=== PATIENT | male | born 1955 | race Caucasian/White ===

== ENCOUNTER 2017-04-05 09:05 | Outpatient (CLI) | payer MEDICAID ==
[2017-04-05 18:49] LABS: ALBUMIN/GLOBULIN RATIO 1.6 (1.0-2.2); BILIRUBIN,TOTAL 0.6 mg/dL (0.2-1.0); BUN - BLOOD UREA NITROGEN 18 mg/dL (6-20); CALCIUM 8.9 mg/dL (8.5-10.3); CARBON DIOXIDE - CO2 29 mmol/L (21-32); CHLORIDE 101 mmol/L (101-111); CHOL/HDL RATIO 3.4 (<5.0); CHOLESTEROL 199 mg/dL; CREATININE 0.9 mg/dL (0.6-1.2); GFR - MDRD 86 (>89); GLUCOSE 99 mg/dL (70-100); HDL CHOLESTEROL 59 mg/dL; LDL/HDL RATIO 1.9 (<3.6); POTASSIUM 4.1 mmol/L (3.5-5.0); SODIUM 134 mmol/L (135-145); TOTAL PROTEIN 6.5 g/dL (6.7-8.2); TRIGLYCERIDES 138 mg/dL; VLDL CHOLESTEROL 28 mg/dL
== END 2017-04-05 09:06 | disposition home or self-care (01) ==
LOC: LAB.F 09:05
PROVIDERS: ATTEND Nurse Practitioner Family
DX: Z13.1 Encounter for screening for diabetes mellitus (principal); Z13.220 Encounter for screening for lipoid disorders; Z12.5 Encounter for screening for malignant neoplasm of prostate
CPT/HCPCS: 36415; 80053; 80061; 84153

== ENCOUNTER 2017-04-12 15:33 | Outpatient (CLI) | payer MEDICAID ==
--- NOTE | 2017-04-13 13:13 | XRAY Report ---
EXAM: RIGHT FOOT RADIOGRAPHY EXAM DATE: 04/12/2017 03:45 PM. CLINICAL HISTORY: PAIN IN RIGHT FOOT. COMPARISON: None. TECHNIQUE: 3 views. FINDINGS: Bones: Posterior and plantar calcaneal enthesophyte formation. Joints: Minimal joint space narrowing at the first MTP joint. No additional bone or joint abnormality . Soft Tissues: Unremarkable. IMPRESSION: 1. Moderate posterior and plantar calcaneal enthesophyte formation. 2. Minimal degenerative change at the first MTP joint. [facility] Referring Provider Line: [phone] SITE ID: [id number]
== END 2017-04-12 15:34 | disposition home or self-care (01) ==
LOC: DI.S 15:33
PROVIDERS: ATTEND Nurse Practitioner Family
DX: M77.31 Calcaneal spur, right foot (principal); M19.071 Primary osteoarthritis, right ankle and foot

== ENCOUNTER 2018-10-10 07:27 | Outpatient (CLI) | payer OTHER ==
[2018-10-10 10:56] LABS: ALBUMIN 4.1 g/dL (3.2-5.5); ALBUMIN/GLOBULIN RATIO 1.6 (1.0-2.2); ALKALINE PHOSPHATASE 56 IU/L (42-121); ALT ALANINE AMINOTRANSFERASE 28 IU/L (10-60); AST ASPARTATE AMINOTRANSFERASE 28 IU/L (10-42); BILIRUBIN,TOTAL 0.9 mg/dL (0.2-1.0); BUN - BLOOD UREA NITROGEN 17 mg/dL (6-20); CARBON DIOXIDE - CO2 26 mmol/L (21-32); CHLORIDE 101 mmol/L (101-111); CHOL/HDL RATIO 3.3 (<5.0); CHOLESTEROL 215 mg/dL; CREATININE 0.9 mg/dL (0.6-1.2); GFR - MDRD 86 (>89); GLUCOSE 100 mg/dL (70-100); HDL CHOLESTEROL 65 mg/dL; LDL CHOLESTEROL,CALCULATED 129 mg/dL; SODIUM 135 mmol/L (135-145); TOTAL PROTEIN 6.7 g/dL (6.7-8.2); VLDL CHOLESTEROL 21 mg/dL
[2018-10-10 10:57] LABS: CRP HIGH SENSITIVITY < 0.5 mg/L
[2018-10-10 11:04] LABS: PSA TOTAL 1.18 ng/mL (0.000-2.000)
[2018-10-10 11:07] LABS: FREE T3 3.02 pg/mL (2.5-3.9)
[2018-10-10 11:08] LABS: BASOPHILS % (AUTO) 0.7 %; EOSINOPHILS # (AUTO) 0.3 10^3/uL (0.0-0.7); EOSINOPHILS % (AUTO) 6.6 %; HGB - HEMOGLOBIN 15.2 g/dL (14.0-18.0); LYMPHOCYTES # (AUTO) 1.2 10^3/uL (1.5-3.5); LYMPHOCYTES % (AUTO) 23.5 %; MEAN CORPUSCULAR HEMOGLOBIN 31.6 pg (27.0-31.0); MEAN CORPUSCULAR HGB CONC 33.9 g/dL (32.0-36.0); MEAN CORPUSCULAR VOLUME 93.4 fL (80.0-94.0); MEAN PLATELET VOLUME 7.7 fL (7.4-11.4); MONOCYTES # (AUTO) 0.5 10^3/uL (0.0-1.0); NEUTROPHILS # (AUTO) 3.2 10^3/uL (1.5-6.6); NEUTROPHILS % (AUTO) 60.2 %; PLT - PLATELET COUNT 317 10^3/uL (130-450); RED BLOOD COUNT 4.82 10^6/uL (4.70-6.10); RED CELL DISTRIBUTION WIDTH 13.2 % (12.0-15.0); WHITE BLOOD COUNT 5.3 x10^3/uL (4.8-10.8)
[2018-10-10 11:10] LABS: THYROID STIMULATING HORMONE 2.19 uIU/mL (0.34-5.60)
[2018-10-10 11:12] LABS: FREE T4 (FREE THYROXINE) 0.94 ng/dL (0.58-1.64)
[2018-10-10 11:14] LABS: HB2 TOTAL 16.3 g/dL; HEMOGLOBIN A1C 0.65 g/dL; HEMOGLOBIN A1C % 5.8 % (4.6-6.2)
== END 2018-10-10 07:28 | disposition home or self-care (01) ==
LOC: LAB.F 07:27
PROVIDERS: ATTEND Naturopath
DX: Z00.01 Encounter for general adult medical examination with abnormal findings (principal); Z12.5 Encounter for screening for malignant neoplasm of prostate; Z13.0 Encounter for screening for diseases of the blood and blood-forming organs and certain disorders involving the immune mechanism; Z13.1 Encounter for screening for diabetes mellitus; Z13.21 Encounter for screening for nutritional disorder; Z13.220 Encounter for screening for lipoid disorders; Z13.6 Encounter for screening for cardiovascular disorders; N52.9 Male erectile dysfunction, unspecified
CPT/HCPCS: 36415; 80053; 80061; 83036; 83721; 84153; 84403; 84439; 84443; 84480; 84481; 85025; 86141

== ENCOUNTER 2019-04-12 09:14 | Outpatient (CLI) | payer OTHER ==
[2019-04-12 18:01] LABS: PSA TOTAL 1.45 ng/mL (0.000-2.000)
[2019-04-12 18:05] LABS: ALBUMIN 4.2 g/dL (3.2-5.5); ALBUMIN/GLOBULIN RATIO 1.5 (1.0-2.2); ALKALINE PHOSPHATASE 59 IU/L (42-121); ALT ALANINE AMINOTRANSFERASE 34 IU/L (10-60); AST ASPARTATE AMINOTRANSFERASE 26 IU/L (10-42); BILIRUBIN,TOTAL 0.8 mg/dL (0.2-1.0); BUN - BLOOD UREA NITROGEN 17 mg/dL (6-20); CALCIUM 9.1 mg/dL (8.5-10.3); CARBON DIOXIDE - CO2 31 mmol/L (21-32); CHLORIDE 100 mmol/L (101-111); CHOL/HDL RATIO 3.7 (<5.0); CHOLESTEROL 222 mg/dL; CREATININE 0.9 mg/dL (0.6-1.2); GFR - MDRD 86 (>89); GLUCOSE 98 mg/dL (70-100); HDL CHOLESTEROL 60 mg/dL; LDL CHOLESTEROL,CALCULATED 144 mg/dL; LDL/HDL RATIO 2.4 (<3.6); SODIUM 136 mmol/L (135-145); VLDL CHOLESTEROL 18 mg/dL
== END 2019-04-12 09:15 | disposition home or self-care (01) ==
LOC: LAB.S 09:14
PROVIDERS: ATTEND Naturopath
DX: Z13.220 Encounter for screening for lipoid disorders (principal); Z12.5 Encounter for screening for malignant neoplasm of prostate; R94.4 Abnormal results of kidney function studies; E78.00 Pure hypercholesterolemia, unspecified
CPT/HCPCS: 36415; 80053; 80061; 83721; 84153

== ENCOUNTER 2019-06-21 11:06 | Outpatient (CLI) | payer BC ==
--- NOTE | 2019-06-22 08:00 | Ultrasound Report ---
Reason: SCREENING FOR AAA Procedure Date: 06/21/2019 Accession Number: [id number] / [id number] Procedure: US - Aorta Screening CPT Code: Final Report FULL RESULT: EXAM: AORTIC DOPPLER ULTRASOUND EXAM DATE: 06/21/2019 11:53 AM. CLINICAL HISTORY: Screening for AAA. COMPARISON: None. TECHNIQUE: Real-time sonographic imaging of retroperitoneal vascular structures, including color-flow, Doppler flow and spectral analysis was performed by the internship. Multiple bilingual call center representative static images were saved for review. FINDINGS: Aorta: The abdominal aorta was adequately visualized. No evidence for abdominal aortic aneurysm. Aorta: Proximal: Sagittal AP 2.5 cm. Mid: Transverse 2.1 x 2.4 cm. Distal: Transverse 1.9 x 1.9 cm. Caliber: WNL: Yes. Plaque visualized: Yes. Iliacs: Right Iliac: Transverse 1.3 x 1.2 cm. Left Iliac: Transverse 1.1 x 1.2 cm. Iliac Vessels: The visualized proximal common iliac arteries are normal in caliber. Other: None. IMPRESSION: No abdominal aortic aneurysm. [facility]
== END 2019-06-21 11:07 | disposition home or self-care (01) ==
LOC: DI 11:06
PROVIDERS: ATTEND Naturopath
DX: Z13.6 Encounter for screening for cardiovascular disorders (principal)
CPT/HCPCS: 76706

== ENCOUNTER 2020-06-10 07:00 | Outpatient (CLI) | payer BC | END 2020-06-10 23:59 | disposition home or self-care (01) | LOC: COV 07:00 | PROVIDERS: ATTEND Family Medicine | DX: R06.02 Shortness of breath (principal); R06.00 Dyspnea, unspecified; M79.10 Myalgia, unspecified site; Z20.822 Contact with and (suspected) exposure to COVID-19 ==

== ENCOUNTER 2020-07-12 10:36 | Outpatient (CLI) | payer BC | END 2020-07-12 10:37 | disposition home or self-care (01) | LOC: RT 10:36 | PROVIDERS: ATTEND Naprapath | DX: R06.02 Shortness of breath (principal) | CPT/HCPCS: 93005 ==

== ENCOUNTER 2020-12-30 15:42 | Outpatient (CLI) | payer BC | END 2020-12-30 15:43 | disposition home or self-care (01) | LOC: COV 15:42 | PROVIDERS: ATTEND Family Medicine | DX: R07.0 Pain in throat (principal); R09.81 Nasal congestion; J34.89 Other specified disorders of nose and nasal sinuses; Z20.822 Contact with and (suspected) exposure to COVID-19 ==

== ENCOUNTER 2021-01-16 13:37 | Outpatient (CLI) | payer BC ==
--- NOTE | 2021-01-16 14:25 | XRAY Report ---
PROCEDURE: Ribs 2 View RT INDICATIONS: RIGHT RIB PAIN TECHNIQUE: 3 views of the right ribs were acquired. COMPARISON: None FINDINGS: Surgical changes and devices: None. Bones and chest wall: Nondisplaced third and fifth and possibly fourth and sixth rib fractures are no bre.. No suspicious bony lesions. Overlying soft tissues appear unremarkable. Lungs and pleura: The visualized lung appears clear. No pleural effusions or pneumothorax are visib le. IMPRESSION: 1. Nondisplaced right third and fifth and possibly fourth and sixth rib fractures. Reviewed by: Bobbi Caceres MD on 01/16/2021 2:24 PM PDT Approved by: Bobbi Caceres MD on 01/16/2021 2:24 PM PDT Station ID: [id number]
== END 2021-01-16 13:38 | disposition home or self-care (01) ==
LOC: DI.S 13:37
PROVIDERS: ATTEND Acupuncturist
DX: M79.10 Myalgia, unspecified site (principal); S29.9XXA Unspecified injury of thorax, initial encounter; W18.30XA Fall on same level, unspecified, initial encounter; S22.41XA Multiple fractures of ribs, right side, initial encounter for closed fracture

== ENCOUNTER 2022-04-30 10:49 | Outpatient (CLI) | payer MEDICARE ==
--- NOTE | 2022-04-30 12:27 | CT Report ---
PROCEDURE: Low Dose Lung Cancer Screen INDICATIONS: EX-SMOKER TECHNIQUE: Noncontrast low-dose axial images were acquired from the pulmonary apices to the posterior costophren ic angles. Multiplanar MIP reformats were then reconstructed. For radiation dose reduction, the follo wing was used: automated exposure control, adjustment of mA and/or kV according to patient size. COMPARISON: None. FINDINGS: Image quality: Excellent. Lungs and pleura: There is a 3.8 mm pleural nodule in the left lower lobe laterally series 11 image 125. Mediastinum: Heart size is normal. No pericardial effusion. No mediastinal adenopathy by size crite abraham. Thoracic aorta and central pulmonary arteries are normal in size. Esophagus is normal in calib er. No hiatal hernia. Bones and chest wall: No suspicious bony lesions. No vertebral body compression fractures. No axil deven or supraclavicular adenopathy by size criteria. The thyroid is normal in size and there are no incidental findings. Abdomen: Visualized upper abdomen solid organs and bowel loops appear normal in the absence of contr ast. IMPRESSION: 1. 3.8 mm pleural nodule in the left lower lobe. 2. No other acute abnormality. Lung-RADS 2: Very low likelihood of becoming clinically active CA due to size or lack of growth, con tinue annual screening in 12 months. Reviewed by: Bari Jones on 04/30/2022 12:25 PM PST Approved by: Bari Jones on 04/30/2022 12:25 PM PST Station ID: [id number]
== END 2022-04-30 10:50 | disposition home or self-care (01) ==
LOC: DI 10:49
PROVIDERS: ATTEND Nurse Practitioner Family
DX: Z12.2 Encounter for screening for malignant neoplasm of respiratory organs (principal); R91.1 Solitary pulmonary nodule; Z87.891 Personal history of nicotine dependence

== ENCOUNTER 2023-04-15 13:09 | Outpatient (CLI) | payer MEDICARE ==
--- NOTE | 2023-04-15 16:16 | CT Report ---
PROCEDURE: Low Dose Lung Cancer Screen INDICATIONS: SMOKER TECHNIQUE: A CT scan of the chest was performed. Intravenous contrast media was not administered. Images were re corded and evaluated at appropriate window settings. Reformats: axial MIP of the chest, coronal and s agittal. For radiation dose reduction, the following was used: automated exposure control, adjustment of mA and/or kV according to patient size. COMPARISON: 04/30/2022 FINDINGS: Image quality: Excellent. Prior cancer history: No. Lungs and pleura: No pleural effusions. No pneumothorax. 4 mm pleural nodule in the left lower lobe laterally series 8 image 128 is unchanged. Mediastinum: Heart size is normal. No pericardial effusion. No large vessel abnormality. No mediastin al adenopathy by size criteria. Chest wall and lower neck: Thyroid is unremarkable. No axillary or supraclavicular adenopathy by size . Bones: No aggressive osseous abnormality. Upper Abdomen: Unremarkable. IMPRESSION: 1. 4 mm pleural nodule in the left lower lobe is unchanged. 2. No acute abnormality. 3. No new nodules or masses. Lung RAD: 2 - Benign. Recommendation: Continue annual screening in 12 Months with LDCT Non-Lung Significant Findings: Coronary Arterial Calcification - Moderate or Severe. Reviewed by: Bari Jones on 04/15/2023 4:15 PM PST Approved by: Bari Jones on 04/15/2023 4:15 PM PST Station ID: [id number]
== END 2023-04-15 13:10 | disposition home or self-care (01) ==
LOC: DI 13:09
PROVIDERS: ATTEND Nurse Practitioner Family
DX: Z12.2 Encounter for screening for malignant neoplasm of respiratory organs (principal); R91.1 Solitary pulmonary nodule

== ENCOUNTER 2023-06-15 09:18 | Outpatient (CLI) | payer MEDICARE ==
--- NOTE | 2023-06-15 14:26 | XRAY Report ---
PROCEDURE: Lumbar Spine 2-3V INDICATIONS: LOW BACK PAIN TECHNIQUE: 3 views of the lumbar spine were acquired. COMPARISON: None. FINDINGS: Bones: 5 aap-[id number] vertebrae are present. There is straightening of normal lumbar lordosis. L oss of disc height, degenerative endplate changes and bilateral facet arthrosis throughout lumbar spi ne is seen.. No vertebral body compression fractures. No suspicious bony lesions. Soft tissues: Overlying bowel gas pattern is normal. No suspicious soft tissue calcifications. IMPRESSION: Moderate degenerative disc disease throughout lumbar spine. No acute compression fracture or spondylo listhesis. Reviewed by: Jaskaran Mckay MD on 06/15/2023 2:24 PM PST Approved by: Jaskaran Mckay MD on 06/15/2023 2:24 PM PST Station ID: [id number]
== END 2023-06-15 09:19 | disposition home or self-care (01) ==
LOC: DI.S 09:18
PROVIDERS: ATTEND Orthopaedic Surgery
DX: M47.816 Spondylosis without myelopathy or radiculopathy, lumbar region (principal)